=== PATIENT | male | born 1970 | race Caucasian/White ===

== ENCOUNTER 2017-05-29 10:28 | Emergency (ER) | payer SELFPAY ==
[~2017-05-29] VITALS: Ht 165.1 cm; Wt 70.3 kg
--- NOTE | 2017-05-29 10:35 | NUR ---
AAOX3, CAME TO ER C/O UPPER BACK PAIN WHEN GETTING DRESSED AT WORK. DENIES ANY TRAUMA. RR IS EVEN AND UNLABORED WITH NAD NOTED. SKIN IS WARM AND DRY. DR MACIAS AT BS FOR EVAL.
[2017-05-29] MEDS ORDERED: KETOROLAC TROMETHAMINE INJ 30 MG/ML VIAL ONE (10:40)
[2017-05-29] MEDS ORDERED: KETOROLAC TROMETHAMINE INJ 60 MG/2 ML VIAL IM ONE (11:00)
[2017-05-29 11:07] VITALS: BP 124/80
--- NOTE | 2017-05-29 11:07 | NUR ---
Patient discharged to home in stable condition. Written and verbal after care instructions given. Patient verbalizes understanding of instruction.
== END 2017-05-29 11:08 | disposition home or self-care (01) ==
LOC: ER 10:30
DX: S29.012A Strain of muscle and tendon of back wall of thorax, initial encounter (principal); X58.XXXA Exposure to other specified factors, initial encounter; Y93.89 Activity, other specified; Y92.89 Other specified places as the place of occurrence of the external cause; Y99.8 Other external cause status
CPT/HCPCS: 71045-TC; A4606; J1885